=== PATIENT | male | born 1955 | race Caucasian/White ===

== ENCOUNTER 2017-08-09 09:18 | Outpatient (CLI) | payer OTHER | END 2017-08-09 09:27 | disposition home or self-care (01) | LOC: LAB 09:18 | DX: J98.4 Other disorders of lung (principal); Z00.00 Encounter for general adult medical examination without abnormal findings; R10.9 Unspecified abdominal pain; Z13.220 Encounter for screening for lipoid disorders; Z13.89 Encounter for screening for other disorder; Z12.11 Encounter for screening for malignant neoplasm of colon; Z12.5 Encounter for screening for malignant neoplasm of prostate; Z13.1 Encounter for screening for diabetes mellitus; Z11.3 Encounter for screening for infections with a predominantly sexual mode of transmission ==

== ENCOUNTER 2017-08-09 10:33 | Outpatient (CLI) | payer OTHER | END 2017-08-09 10:35 | disposition home or self-care (01) | LOC: RAD 10:33 | DX: J98.4 Other disorders of lung (principal); Z00.00 Encounter for general adult medical examination without abnormal findings; R10.9 Unspecified abdominal pain; Z13.220 Encounter for screening for lipoid disorders; Z13.89 Encounter for screening for other disorder; Z12.11 Encounter for screening for malignant neoplasm of colon; Z13.1 Encounter for screening for diabetes mellitus; Z11.3 Encounter for screening for infections with a predominantly sexual mode of transmission; Z12.5 Encounter for screening for malignant neoplasm of prostate ==

== ENCOUNTER 2018-04-09 09:43 | Outpatient (CLI) | payer OTHER | END 2018-04-09 09:50 | disposition home or self-care (01) | LOC: LAB 09:43 | DX: E78.49 Other hyperlipidemia (principal); Z13.89 Encounter for screening for other disorder ==

== ENCOUNTER 2018-04-15 08:16 | Outpatient (CLI) | payer OTHER | END 2018-04-15 08:20 | disposition home or self-care (01) | LOC: LAB 08:16 | DX: E78.49 Other hyperlipidemia (principal); E78.00 Pure hypercholesterolemia, unspecified; N39.8 Other specified disorders of urinary system ==

== ENCOUNTER 2019-04-16 12:08 | Outpatient (CLI) | payer OTHER | END 2019-04-16 12:13 | disposition home or self-care (01) | LOC: LAB 12:08 | DX: R05 Cough (principal); R09.81 Nasal congestion; Z76.0 Encounter for issue of repeat prescription; E08.69 Diabetes mellitus due to underlying condition with other specified complication; R50.9 Fever, unspecified; E03.8 Other specified hypothyroidism; N40.1 Benign prostatic hyperplasia with lower urinary tract symptoms; E78.49 Other hyperlipidemia ==

== ENCOUNTER 2019-10-02 07:41 | Outpatient (CLI) | payer OTHER | END 2019-10-02 08:59 | disposition home or self-care (01) | LOC: LAB 07:41 | DX: Z13.1 Encounter for screening for diabetes mellitus (principal); Z12.11 Encounter for screening for malignant neoplasm of colon; Z12.5 Encounter for screening for malignant neoplasm of prostate; Z13.220 Encounter for screening for lipoid disorders ==

== ENCOUNTER 2020-11-11 09:20 | Outpatient (CLI) | payer OTHER | END 2020-11-11 09:21 | disposition home or self-care (01) | LOC: LAB 09:20 | PROVIDERS: ATTEND Specialist | DX: E78.49 Other hyperlipidemia (principal); Z12.11 Encounter for screening for malignant neoplasm of colon; Z12.5 Encounter for screening for malignant neoplasm of prostate; Z13.1 Encounter for screening for diabetes mellitus ==

== ENCOUNTER 2020-11-17 08:35 | Outpatient (CLI) | payer OTHER | END 2020-11-17 08:40 | disposition home or self-care (01) | LOC: NUCLEAR 08:35 | PROVIDERS: ATTEND Specialist | DX: I73.9 Peripheral vascular disease, unspecified (principal); I87.2 Venous insufficiency (chronic) (peripheral) ==

== ENCOUNTER 2021-02-15 13:07 | Outpatient (CLI) | payer OTHER | END 2021-02-15 14:11 | disposition home or self-care (01) | LOC: RAD 13:07 | PROVIDERS: ATTEND Specialist | DX: H70.899 Other mastoiditis and related conditions, unspecified ear (principal) ==

== ENCOUNTER 2021-02-25 08:50 | Outpatient (CLI) | payer OTHER | END 2021-02-25 08:52 | disposition home or self-care (01) | LOC: LAB 08:50 | PROVIDERS: ATTEND General Practice | DX: R10.84 Generalized abdominal pain (principal); R30.0 Dysuria; N20.0 Calculus of kidney; N39.0 Urinary tract infection, site not specified ==

== ENCOUNTER 2021-02-25 10:05 | Outpatient (CLI) | payer OTHER | END 2021-02-25 15:46 | disposition home or self-care (01) | LOC: SONOGRAMA 10:05 | PROVIDERS: ATTEND General Practice | DX: R10.84 Generalized abdominal pain (principal); R30.0 Dysuria; N20.0 Calculus of kidney ==

== ENCOUNTER 2021-09-26 10:41 | Outpatient (CLI) | payer OTHER | END 2021-09-26 15:49 | disposition home or self-care (01) | LOC: LAB 10:41 | DX: H92.01 Otalgia, right ear (principal); E78.2 Mixed hyperlipidemia; E11.9 Type 2 diabetes mellitus without complications; E03.9 Hypothyroidism, unspecified; Z12.5 Encounter for screening for malignant neoplasm of prostate; Z12.11 Encounter for screening for malignant neoplasm of colon; R80.9 Proteinuria, unspecified; N39.0 Urinary tract infection, site not specified; D50.9 Iron deficiency anemia, unspecified ==

== ENCOUNTER 2021-10-13 07:30 | Outpatient (CLI) | payer OTHER | END 2021-10-13 07:32 | disposition home or self-care (01) | LOC: TOM 07:30 | PROVIDERS: ATTEND General Practice | DX: H92.01 Otalgia, right ear (principal); H70.891 Other mastoiditis and related conditions, right ear; R68.84 Jaw pain ==

== ENCOUNTER 2021-10-13 07:57 | Outpatient (CLI) | payer OTHER | END 2021-10-13 08:04 | disposition home or self-care (01) | LOC: LAB 07:57 | PROVIDERS: ATTEND Radiology Diagnostic Radiology | DX: H70.891 Other mastoiditis and related conditions, right ear (principal) ==

== ENCOUNTER 2022-04-05 09:31 | Emergency (ER) | payer OTHER ==
[~2022-04-05] VITALS: Ht 195.6 cm; Wt 90.7 kg
== END 2022-04-05 16:08 | disposition home or self-care (01) ==
LOC: ER 09:31
DX: S09.90XA Unspecified injury of head, initial encounter (principal); W19.XXXA Unspecified fall, initial encounter; Y93.01 Activity, walking, marching and hiking; Y92.013 Bedroom of single-family (private) house as the place of occurrence of the external cause; R55 Syncope and collapse

== ENCOUNTER 2022-08-28 06:48 | Outpatient (CLI) | payer OTHER | END 2022-08-28 06:51 | disposition home or self-care (01) | LOC: LAB 06:48 | PROVIDERS: ATTEND General Practice | DX: M54.51 Vertebrogenic low back pain (principal); M54.50 Low back pain, unspecified; Z11.1 Encounter for screening for respiratory tuberculosis; Z11.3 Encounter for screening for infections with a predominantly sexual mode of transmission; Z11.4 Encounter for screening for human immunodeficiency virus [HIV]; Z12.5 Encounter for screening for malignant neoplasm of prostate; Z12.11 Encounter for screening for malignant neoplasm of colon; Z13.0 Encounter for screening for diseases of the blood and blood-forming organs and certain disorders involving the immune mechanism; Z13.1 Encounter for screening for diabetes mellitus; Z13.220 Encounter for screening for lipoid disorders; Z13.228 Encounter for screening for other metabolic disorders; Z13.29 Encounter for screening for other suspected endocrine disorder ==

== ENCOUNTER 2022-08-28 07:56 | Outpatient (CLI) | payer OTHER | END 2022-08-28 08:08 | disposition home or self-care (01) | LOC: RAD 07:56 | PROVIDERS: ATTEND General Practice | DX: M54.42 Lumbago with sciatica, left side (principal); M54.59 Other low back pain | CPT/HCPCS: 72148 ==

== ENCOUNTER 2023-01-17 10:52 | Outpatient (CLI) | payer OTHER | END 2023-01-17 11:06 | disposition home or self-care (01) | LOC: SONOGRAMA 10:52 | PROVIDERS: ATTEND General Practice | DX: R10.9 Unspecified abdominal pain (principal); R49.0 Dysphonia; Z12.11 Encounter for screening for malignant neoplasm of colon; E78.5 Hyperlipidemia, unspecified; K59.00 Constipation, unspecified; Z13.220 Encounter for screening for lipoid disorders; Z13.228 Encounter for screening for other metabolic disorders ==

== ENCOUNTER 2024-02-26 13:22 | Outpatient (CLI) | payer OTHER | END 2024-02-26 13:46 | disposition home or self-care (01) | LOC: SONOGRAMA 13:22 | PROVIDERS: ATTEND General Practice | DX: K11.9 Disease of salivary gland, unspecified (principal); M26.609 Unspecified temporomandibular joint disorder, unspecified side; R68.84 Jaw pain ==